=== PATIENT | male | born 1950 | race Caucasian/White ===

== ENCOUNTER 2018-09-24 07:30 | Inpatient (IN) ==
[2018-09-24] MEDS ORDERED: Chlorhexidine Gluconate 2% 1 Pack (2 Cloths) TOPICAL ONE (10:29)
[2018-09-24] MEDS ORDERED: Metoprolol Tartrate 25 MG Tablet PO ONE (10:29)
[2018-09-24] MEDS ORDERED: Chlorhexidine 4% Topical 120 APPLIC/120 ML Bottle TOPICAL SCH (10:30)
[2018-09-24] MEDS ORDERED: Sodium Chlor 0.9% Inj 250 ML ONE (10:55)
[2018-09-24] MEDS ORDERED: Sodium Chlor 0.9% Inj 500 ML IV.SIG SCH (11:00)
[2018-09-24 11:07] LABS: Bilirubin,Urine Negative (Negative); Clarity,Urine Clear (Clear); Color,Urine Yellow (Yellw/Straw); Glucose,Urine (UA) Negative (Negative); Leukocyte Esterase,Urine Negative (Negative); Nitrite,Urine Negative (Negative); Specific Gravity,Urine 1.015 (1.002-1.035)
[2018-09-24] MEDS ORDERED: Vancomycin Inj 1,000 MG in Sodium Chlor 0.9% Inj 250 ML IV.SIG SCH (12:30)
[2018-09-24] MEDS ORDERED: Sodium Chlor 0.9% Inj 60 ML, Bupivacaine Liposo PF 1.3% Inj 20 ML, Bupivacaine/Epi PF 0... P-ARTICULR SCH ×3 (12:30)
[2018-09-24] MEDS ORDERED: TRANEXAMIC ACID IV.SIG SCH (13:00)
[2018-09-24] MEDS ORDERED: ceFAZolin 2 GM Premix Inj 2 GM/50 ML PIGGYBACK IV.SIG SCH (13:00)
[2018-09-24] MEDS ORDERED: SODIUM CHLOR 0.9% IV.SIG SCH (13:00)
[2018-09-24] MEDS ORDERED: Ropivacaine 0.5% PF Inj 20 ML Vial ONE (13:19)
[2018-09-24] MEDS ORDERED: Glycopyrrolate Inj 1 MG/5 ML Syringe IV.PUSH ONE (14:12)
[2018-09-24] MEDS ORDERED: Neostigmine Inj 5 MG/5 ML Syringe IV.PUSH ONE (14:12)
[2018-09-24] MEDS ORDERED: Lidocaine PF 1% Inj 5 ML Syringe OTHER ONE (14:12)
[2018-09-24] MEDS ORDERED: Phenylephrine/NS 1000 MCG/10ML Syringe IV.PUSH ONE (14:12)
[2018-09-24] MEDS ORDERED: ALPRAZolam 0.5 MG Tablet PO PRN (14:49)
[2018-09-24] MEDS ORDERED: Naproxen 500 MG Tablet PO PRN (14:49)
[2018-09-24] MEDS ORDERED: Bisacodyl 10 MG Supp RECTAL PRN (14:51)
[2018-09-24] MEDS ORDERED: Post-op Orders (for Pharmacy) OTHER STA (14:51)
[2018-09-24] MEDS ORDERED: Temazepam 15 MG Capsule PO PRN (14:51)
[2018-09-24] MEDS ORDERED: Morphine Inj 4 MG/ML Vial IV.PUSH PRN (14:51)
[2018-09-24] MEDS ORDERED: ceFAZolin Inj 1 GM Vial (Addvantage) IV.SIG ONE (15:35)
[2018-09-24] MEDS ORDERED: Sugammadex Inj 200 MG/2 ML Vial IV.PUSH ONE (16:38)
--- NOTE | 2018-09-24 16:41 | P.DCO ---
- Physical Therapy Physical Therapy: Gait training (Physical therapy 3 times per week for 2 weeks) Knee: Total knee, Protocol: Left, Full weight bearing Canvas Knee Splint: Other (At nighttime for 4 weeks) Left Lower Extremity Weight Bearing: Weight bearing as tolerated Left Lower Extremity Range of Motion: Active ROM - Case Management Consult Case Management Consult-Home Health: Yes - Certification Need for Home Health services: I have seen patient Azael Hall on 09/24/18. My clinical findings support the need for the requested home health care services because: Need for Home Health Services: High risk of falls Homebound Certification: I certify that my clinical findings support that this patient is homebound because: Homebound Certification: Unsteady gait/balance
--- NOTE | 2018-09-24 16:44 | P.OP ---
- Preoperative Diagnosis (1) Osteoarthritis of left knee - Postoperative Diagnosis (1) Osteoarthritis of left knee Date of procedure: 09/24/18 Procedure: Left total knee arthroplasty Anesthesia: GETA, regional, local Surgeon: Zak Mcaky MD Flight Control Tower Operator: Marina Coffey PA-C Operation and Findings: EBL: 100 cc INDICATION: This patient presents with long-standing arthritis of the knee. Attachment record documents conservative measures. The patient now presents for surgical treatment. NOTE: Marina Coffey PA-C was present for the entire surgical procedure as my assistant kitchen manager. In my medical opinion her skill and care was necessary for proper management of this patient. TOURNIQUET TIME: 65 minutes COMPANY: [employer] FEMUR: Size 10, posterior stabilized TIBIA: Size 10, fixed-bearing PATELLA: 35 mm POLYETHYLENE INSERT: Posterior stabilized, 10 mm PROCEDURE: This patient was brought the operating room and anesthetized in the supine position. The patient was positioned supine on the table. The tourniquet was placed about the thigh, and the leg was scrubbed with alcohol followed by Hibiclens followed by ChloraPrep and draped sterilely. A timeout was done, and antibiotics were given. After exsanguination the tourniquet was inflated to 250 mmHg. An anterior incision was made and a median parapatellar arthrotomy was performed. The patella was released laterally and subluxed allowing freehand cut of the patella which was then sized. A metal cap was placed over the exposed patellar surface for protection. A commuter pilot hole was placed in the distal femur allowing a 4 valgus cut removing 10 mm from the distal femur. The distal femoral component was translated anteriorly by 1.5 mm because of accommodative size of the distal femur. Anterior posterior and chamfer cuts were made. The posterior stabilize osteotomy was made. The attention was directed to the tibia. Retractors were positioned. The external alignment guide was used allowing the lateral tibia to be used as referencing guide and cut utilizing an oscillating saw taking care to avoid any injury to the surrounding soft tissues. This was sized properly. Trial reduction showed that the insert fit nicely. The patient had range of motion extension 0 flexion 120. A medial release was not necessary. The bony surfaces prepared. On the back table 2 packets of methylmethacrylate were mixed. The components were cemented. Excess cement was removed. The tourniquet let down and hemostasis was controlled. The final plastic insert was inserted. Range of motion was the same as previously noted. A drain was brought through a separate stab incision. The arthrotomy was repaired with interrupted #1 Vicryl suture, subcutaneous tissue 2-0 Vicryl suture and skin with metallic gil A sterile dressing was applied. Sponge counts, needle counts and instrument counts were all correct. The patient tolerated procedure well and was taken to recovery in satisfactory condition. FINDINGS: There was severe osteoarthritis of the medial compartment. The patient had very large bone size. The final solution appeared to be excellent
[2018-09-24] MEDS ORDERED: fentaNYL Citrate Inj 100 MCG/2 ML Ampul ONE (17:14)
[2018-09-24] MEDS ORDERED: *morphine SULFATE 4 MG/ML PERIprocedure ONLY ONE (17:32)
--- NOTE | 2018-09-24 17:50 | XR ---
EXAM DATE: 09/24/2018 5:37 PM EST AGE/SEX: 67 years / Male INDICATIONS: Post op left knee surgery. CLINICAL DATA: This is the patient's initial encounter. Patient reports that signs and symptoms have been present for 1 day and indicates a pain score of 0/10. MEDICAL/SURGICAL HISTORY: None. Total knee replacement, right. COMPARISON: No prior exams available for comparison. FINDINGS: 2 views of the knee after total knee arthroplasty. The hardware is intact. The osseous structures are in normal alignment. Multiple skin gil. Surgical drain in the suprapatellar region. Deep soft ti ssue gas about the medial aspect of the knee. CONCLUSION: Expected postsurgical changes status post total knee arthroplasty. Electronically signed by: Lizandro Diaz MD Board Certified Radiologist 09/24/2018 5:48 PM EST
--- NOTE | 2018-09-24 18:22 | P.DS ---
Date of admission: 09/24/18 09:45 Primary care physician: Dania Snyder DO Attending physician on discharge: Zak Mckay Anticipated date of discharge: 09/25/18 Brief History from admission: Mr. Hall has had bilateral knee pain for many years. He underwent right total knee arthroplasty in 2015 with much success. He began having more pain about his left knee early 2017. He was given naproxen which only provided mild relief. He attempted weight loss. He sought out treatment including updated x- rays. He was told he had advanced arthritis about his left knee. He was given an intra-articular injection. Though he was able to get temporary relief from these treatments his function slowly declined. Eventually a left total knee arthroplasty was recommended. He agreed and now presents for the above. DS: Diagnosis - Discharge Diagnosis (1) Osteoarthritis of left knee Status: Acute DS: Medications - Discharge Medications Prescriptions: aspirin 81 mg PO BID 30 Days #60 tab hydrocodone-acetaminophen 1 tab PO Q4H PRN #42 tab PRN Reason: Acute Pain DS: Summary Hospital Course: Surgical treatment was performed on the day of admission without complication. He recovered well in PACU and was transferred to the orthopedic floor. Pain was controlled with IV and oral medications. He was compliant with physical therapy and all total knee precautions. His drain was removed after 24 hours. After 1 day he was found be stable and discharged home with a home physical therapy team. He was encouraged to pursue a high-fiber diet, to ice the operative site, and to continue physical therapy. He was given prescriptions for [place] and aspirin. - Time Spent with Patient Total time spent providing and/or coordinating discharge services: Greater than 30 minutes - Quality: VTE Deep Vein Thrombosis/Pulmonary Embolism Present on Admission: No Exam Vital signs: Vital Signs 09/24/18 10:43 09/24/18 11:23 09/24/18 17:06 Temperature 98.0 F 97.8 F Pulse Rate 67 66 75 Respiratory Rate 18 17 Blood Pressure 124/74 157/69 H Pulse Oximetry 96 94 L 95 09/24/18 17:15 09/24/18 17:30 09/24/18 17:37 Temperature Pulse Rate 72 75 Respiratory Rate 20 14 15 Blood Pressure 126/53 L 93/59 L Pulse Oximetry 97 94 L 09/24/18 17:41 09/24/18 17:42 09/24/18 17:45 Temperature 98.7 F Pulse Rate 69 70 70 Respiratory Rate 15 12 Blood Pressure 149/67 H 142/60 H Pulse Oximetry 96 95 Intake & Output 09/23/18 09/24/18 09/24/18 18:59 06:59 18:59 Intake Total Output Total 150 / 150 Balance 1864.01 / 1864.01 Weight 140.1 kg Intake: IV 414.01 / 414.01 Cyklokapron Inj 1,401 MG In NS 114.01 / 114.01 Inj 100 ML @ 200 mls/hr IV.SIG ONCE TERE Rx#:[id number] Vancomycin Inj 1,000 MG In NS 250 / 250 Inj 250 ML @ 250 mls/hr IV.SIG OPEN HEARTH FURNACE OPERATOR TERE Rx#:[id number] Ancef 2 GM Premix Inj 2 gm In 50 / 50 50 ml @ 100 mls/hr IV.SIG OPEN HEARTH FURNACE OPERATOR TERE Rx#:[id number] Anesthesia Amount 1600 / 1600 Output: Urine 50 / 50 Estimated Blood Loss 100 / 100 Other: # Voids 1 Weight On Admission 140.1 kg Results Procedures completed during hospitalization: Left total knee arthroplasty Labs on day of discharge: Labs from last 24 hours 09/24/18 09/24/18 10:45 10:15 Urine Color Yellow Urine Clarity Clear Urine pH 6.0 Ur Specific [place] 1.015 Urine Protein Negative Urine Glucose (UA) Negative Urine Ketones Negative Urine Occult Blood Negative Urine Nitrate Negative Urine Bilirubin Negative Urine Urobilinogen Less than 2 Ur Leukocyte Esterase Negative Urine RBC Less than 1 Urine WBC 1 Micro UA Comment Culture not ind Ur Microscopic Review Not Reportable Urine Culture Comments Culture not ind Blood Type A Positive Antibody Screen Negative - Impressions ITS Impressions Knee X-Ray 09/24/18 14:51 CONCLUSION: Expected postsurgical changes status post total knee arthroplasty. Discharge Plan - Discharge Disposition Patient Disposition: Disch W/Home Health Service - Discharge Condition Condition: Good - Discharge Order Discharge Orders: Discharge Order (Routine); Ordered 09/25/18 Ordered By: Zka Mckay - Physicians Team Primary Care Provider: Dania Snyder Attending Provider: Zak Mckay Other Providers: [employer],Agency ; [employer] - Rxs /Orders / Referrals /Forms Prescriptions: New aspirin 81 mg Tablet,Chewable 81 mg PO BID 30 Days Qty: 60 RF: 0 hydrocodone-acetaminophen 10-325 mg Tablet 1 tab PO Q4H PRN (Reason: Acute Pain) Qty: 42 RF: 0 Continue alprazolam 0.5 mg Tablet 0.5 mg PO DAILY PRN (Reason: Anxiety) diltiazem HCl 240 mg Capsule,Extended Release 24 Hr 240 mg PO HS hydrochlorothiazide 25 mg Tablet 25 mg PO DAILY losartan 50 mg Tablet 100 mg PO DAILY lovastatin 20 mg Tablet 20 mg PO HS naproxen [Naprosyn] 500 mg Tablet 500 mg PO BID PRN (Reason: Pain) tramadol 50 mg Tablet 50 mg PO Q4-6H PRN (Reason: Pain) Ambulatory Orders / Order Sets / DME: Adjustable Commode 3-in-1 (1 each) (Routine) Location: Determined by Patient Ordered By: Zak Mckay Walker With Front Wheels (1 each) (Routine) Location: Determined by Patient Ordered By: Zak Mckay Referrals: Dania Snyder, [Primary Care Provider] - See Instructions (F/O IN ONE WEEK WITH PRIMARY CARE. CALLED DR OFFICE AND LEFT MESSAGE. PT NEEDS TO MAKE OWN APPT) - Discharge Instructions Patient Printed Instructions: Knee Replacement (DC) - Post Discharge Care Plan Care Plan Goals: Discharge Care Plan Goals for LEFT Total Knee Replacement You have undergone knee replacement surgery. Your doctor replaced your painful joint with an artificial joint to relieve pain and restore movement. Here are some goals to help you heal well. Directions to Meet your Goals: 1. Activity & Exercises: * Take pain medicine as directed by your doctor. * Sit in chairs with arms. The arms make it easier for you to stand up or sit down. * Dont sit for more than 30 to 45 minutes at one time. * Nap if you are tired, but dont stay in bed all day. * Sleep with a pillow under your ankle, not your knee. Be sure to change the position of your leg during the night. * Wear the support stockings you were given in the hospital as directed by your surgeon. 2. Prevent Falls/Injury: The enriquez to successful recovery is movement with walking and exercising your knee as directed by your doctor. * Arrange your household to keep the items you need handy. Keep everything else out of the way. * Remove items that may cause you to fall, such as throw rugs and electrical cords. * Use nonslip bath mats, grab bars, an elevated toilet seat, and a shower chair in your bathroom * Sit on a shower stool or chair when you shower to keep from falling. * Until your balance, flexibility, and strength improve, use a cane, crutches, a walker, handrails, or someone to help you. * Keep your hands free by using a backpack, he pack, apron, or pockets to carry things * Walk up and down stairs with support. Try one step at a time. Use the railing if possible. * Dont drive until your doctor says its OK. * Dont drive while you are taking opioid pain medicine. 3. Precautions: * Prevent infection. Any infection will need to be treated immediately. Call your doctor right away if you think you might have an infection. * Tell your dentist that you have an artificial joint and take antibiotics as prescribed before any dental work. * Tell all your healthcare providers about your artificial joint before any medical procedure. * Maintain a healthy weight. Get help to lose any extra pounds. Added body weight puts stress on the knee. * Your medications may include blood-thinning medicine to prevent blood clots or antibiotics to prevent infection-prevent any falls or cuts 4. Incision Care: * Prevent infection by washing your hands often. If an infection occurs, it will need to be treated right away. * Call your doctor right away if you think you may have an infection. Symptoms include a fever or an incision that leaks white, green, or yellow fluid. * Don't soak your incision in water until your doctor says its OK. This means no hot tubs, bathtubs, or swimming pools. * Follow your doctor's instructions for changing the dressing. * Dont rub the incision, or apply creams or lotions to it. * If you notice any redness or drainage around the bandage site, contact your surgeon's office immediately. 5. Follow-Up: Do Not miss your follow-up appointment. Keep up with all your appointments and yearly check ups When to call your doctor: Call your doctor right away if you have: Fever of 100.4F (38C) or higher, or as directed by your doctor Shaking chills Stiffness, or inability to move the knee Increased swelling in your leg Increased redness, tenderness, or swelling in or around the knee incision Drainage from the knee incision Increased knee pain Call 911: Call 911 right away if you have: Chest pain Shortness of breath Any pain or tenderness in your calf
[2018-09-24] MEDS: Senna/Docusate Sodium 8.6/50 MG Tablet PO SCH (20:58)
[2018-09-24] MEDS: Multivitamin/Minerals Therapeutic Tablet PO SCH (20:58)
[2018-09-24] MEDS: ceFAZolin Inj 1 GM in Sodium Chlor 0.9% Inj 100 ML IV.SIG SCH (20:59)
[2018-09-24] MEDS ORDERED: dilTIAZem CD 240 MG Capsule PO SCH (21:00)
[2018-09-24] MEDS: Naproxen 500 MG Tablet PO SCH (21:02)
[2018-09-25] MEDS: ceFAZolin Inj 1 GM in Sodium Chlor 0.9% Inj 100 ML IV.SIG SCH ×2 (03:05→10:07)
[2018-09-25] MEDS ORDERED: hydroCHLOROthiazide 25 MG Tablet PO SCH (09:00)
[2018-09-25] MEDS: Senna/Docusate Sodium 8.6/50 MG Tablet PO SCH (10:04)
[2018-09-25] MEDS: Multivitamin/Minerals Therapeutic Tablet PO SCH (10:04)
[2018-09-25] MEDS: Naproxen 500 MG Tablet PO SCH (10:15)
--- NOTE | 2018-09-25 13:11 | P.PNOP ---
Subjective Interval history: Doing as expected. Pain moderately controlled. No new leg pain. No CP or SOB. Physical Exam Vital signs: Vital Signs 09/24/18 17:06 09/24/18 17:15 09/24/18 17:30 Temperature 97.8 F Pulse Rate 75 72 75 Respiratory Rate 17 20 14 Blood Pressure 157/69 H 126/53 L 93/59 L Pulse Oximetry 95 97 94 L 09/24/18 17:37 09/24/18 17:41 09/24/18 17:42 Temperature Pulse Rate 69 70 Respiratory Rate 15 15 Blood Pressure 149/67 H Pulse Oximetry 96 09/24/18 17:45 09/24/18 18:39 09/24/18 19:55 Temperature 98.7 F 97.1 F L 98.1 F Pulse Rate 70 74 84 Respiratory Rate 12 16 18 Blood Pressure 142/60 H 126/58 L 116/55 L Pulse Oximetry 95 94 L 95 09/25/18 00:30 09/25/18 04:20 09/25/18 08:00 Temperature 98 F 97.6 F 97.2 F L Pulse Rate 74 69 62 Respiratory Rate 18 18 20 Blood Pressure 132/61 124/55 L 118/59 L Pulse Oximetry 94 L 96 92 L 09/25/18 12:00 Temperature 98.4 F Pulse Rate 82 Respiratory Rate 17 Blood Pressure 115/58 L Pulse Oximetry 95 Intake & Output 09/24/18 09/25/18 09/25/18 18:59 06:59 18:59 Intake Total 2013. 1560 / 1560 Output Total 150 / 150 835 / 835 250 / 250 Balance 1864.01 / 1864.01 725 / 725 -250 / -250 Weight 140.1 kg 153.7 kg Intake: IV 414.01 / 414.01 1200 / 1200 LR 1000 mL Inj 1,000 ML @ 80 1000 / 1000 mls/hr IV.CONT .[id number] TERE Rx# :[id number] Cyklokapron Inj 1,401 MG In NS 114.01 / 114.01 Inj 100 ML @ 200 mls/hr IV.SIG ONCE TERE Rx#:[id number] Vancomycin Inj 1,000 MG In NS 250 / 250 Inj 250 ML @ 250 mls/hr IV.SIG CARROT HARVESTER TERE Rx#:[id number] Ancef 2 GM Premix Inj 2 gm In 50 / 50 50 ml @ 100 mls/hr IV.SIG CARROT HARVESTER TERE Rx#:[id number] Ancef Inj 1 GM In NS Inj 100 ML 200 / 200 @ 200 mls/hr IV.SIG Q6H TERE Rx #:[id number] Oral 360 / 360 Anesthesia Amount 1600 / 1600 Output: Urine 50 / 50 750 / 750 250 / 250 Estimated Blood Loss 100 / 100 Wound Drainage # 1 Left Knee Hemovac Other: # Voids 1 Date of Last Bowel Movement 09/24/18 # Bowel Movements 0 Weight On Admission 140.1 kg Narrative: Laying in bed Family member at bedside NAD LLE Knee dressing c/d/i, drain in place, no erythema, mild swelling +motor at distal, +sens, +nvi Neg homans - Constitutional no acute distress Results - Imaging Impressions Knee X-Ray 09/24/18 14:51 CONCLUSION: Expected postsurgical changes status post total knee arthroplasty. - Procedures Left total knee arthroplasty Assessment and Plan - Ortho Post Op Day # 1 - Problem List (1) Osteoarthritis of left knee Code(s): M17.12 - Unilateral primary osteoarthritis, left knee Status: Acute - Assessment and Plan pod#1 s/p L TKA Doing well. Ortho stable. Ok to d/c left knee drain and redress drain site only. Hold anterior knee dressing changes unless saturated. ASA 81mg Shushan as needed for pain. PT - WBAT LLE. TKA protocol. Ok to d/c home after PT today. F/U in 2 weeks as scheduled.
== END 2018-09-25 16:01 | disposition home health service (06) | DRG 470 ==
LOC: HSDI 09:45 → N06 18:01
PROVIDERS: ADMIT Orthopaedic Surgery Orthopaedic Surgery of the Spine; ATTEND Orthopaedic Surgery Orthopaedic Surgery of the Spine
CPT/HCPCS: 73560; 81001; 86850; 86900; 86901; 94150; 97162; 97166; C1776; J0131; J0690; J1100; J1580; J2250; J2270; J2370; J2405; J2704; J2710; J2795; J3010; J3370; J7050; J7120; L1830